=== PATIENT | female | born 1995 | race Caucasian/White ===

== ENCOUNTER 2017-09-23 18:29 | Emergency (ER) | payer OTHER ==
[2017-09-23 18:30] VITALS: BMI 33.9
[2017-09-23 18:46] VITALS: BP 122/75; PULSE 85; RESP 20; TEMP 99.1; O2SAT 99
[2017-09-23] MEDS ORDERED: Amoxicillin-Clav 875-125 mg Tab PO STA (19:28)
--- NOTE | 2017-09-23 19:28 | ED PDOC ---
Arrival/HPI - General Historian: Patient - History of Present Illness Time/Duration: < week (September 21. ) Symptom Onset: Sudden Symptom Course: Worsening Severity Level: 9 (When palpated ) <Adalberto Mcclendon - Last Filed: 09/23/17 22:10> <Krysten Moran - Last Filed: 09/25/17 11:34> - General Chief Complaint: Bite Time Seen by Provider: 09/23/17 18:42 - History of Present Illness Narrative History of Present Illness (Text): 21 year old female with no Past medical history presents complaining of pig bite on her right lower ext. Pig bite happened in [place] on Sep.21. She used bacitracin over both wounds. She denies taking any oral medication. She denies any fevers or chills. She does note increasing erythema around one of the wounds. She rates the pain a 9/10 when palpated but a 0/10 at rest. Patient is unsure about her tetanus vaccination status specifically but stated she is updated on her immunizations. ROS POSITIVES: wound TTP NEGATIVES: fevers, chills, headache, chest pain, shortness of breath, abdominal pain, changes in bowel habits or urinary symptoms, numbness, tingling Past medical history: Denies Past surgical history: tonsillectomy Allergies: NKDA Social Hx: Admits to occasional Hookah and Alcohol use. Denies illicit drug use FamHx: Mother - hypertension/Arthritis Meds: Maritza Fulton ( control) (Adalberto Mcclendon) Past Medical History - Provider Review Nursing Documentation Reviewed: Yes - Infectious Disease Hx of Infectious Diseases: None - Cardiac Hx Cardiac Disorders: No - Pulmonary Hx Respiratory Disorders: No - Neurological Hx Neurological Disorder: No - HEENT Hx HEENT Disorder: No - Renal Hx Renal Disorder: No - Endocrine/Metabolic Hx Endocrine Disorders: No - Hematological/Oncological Hx Blood Disorders: No - Integumentary Hx Dermatological Disorder: No - Musculoskeletal/Rheumatological Hx Musculoskeletal Disorders: Yes Hx Fractures: Yes (bilat ankles) - Gastrointestinal Hx Gastrointestinal Disorders: No - Genitourinary/Gynecological Hx Genitourinary Disorders: No - Psychiatric Hx Psychophysiologic Disorder: No Hx Depression: No Hx Emotional Abuse: No Hx Physical Abuse: No Hx Substance Use: No - Surgical History Hx Tonsillectomy: Yes - Anesthesia Hx Anesthesia: Yes Hx Anesthesia Reactions: No Hx Malignant Hyperthermia: No - Suicidal Assessment Feels Threatened In Home Enviroment: No <Adalberto Mcclendon - Last Filed: 09/23/17 22:10> Family/Social History - Physician Review Nursing Documentation Reviewed: Yes Family/Social History: Hypertension, Other (Arthritis) Smoking Status: Never Smoked Hx Alcohol Use: No Hx Substance Use: No <FaustoDarien titusmisti - Last Filed: 09/23/17 22:10> Allergies/Home Meds <HakanDarienmisti - Last Filed: 09/23/17 22:10> <Krysten Moran - Last Filed: 09/25/17 11:34> Allergies/Adverse Reactions: Allergies No Known Allergies Allergy (Verified 09/23/17 18:46) Home Medications: Home Meds Medication Instructions Recorded Confirmed Norethindrone-E.estradiol-Iron 1 tab PO DAILY 09/23/17 09/23/17 [Microgestin Fe 1-20 Tablet] Review of Systems - Physician Review All systems were reviewed & negative as marked: Yes (As per HPI) - Review of Systems Constitutional: absent: Fevers Respiratory: Normal. absent: SOB Cardiovascular: Normal. absent: Chest Pain Gastrointestinal: Normal. absent: Abdominal Pain <OmerAdalberto kolb - Last Filed: 09/23/17 22:10> Physical Exam Vital Signs Reviewed: Yes Temperature: Afebrile Blood Pressure: Normal Pulse: Regular Respiratory Rate: Normal Appearance: Positive for: Well-Appearing, Non-Toxic, Comfortable Pain Distress: None (No pain at rest) Mental Status: Positive for: Alert and Oriented X 3 - Systems Exam Head: Present: Atraumatic, Normocephalic Extroacular Muscles: Present: EOMI Conjunctiva: Present: Normal Mouth: Present: Moist Mucous Membranes Nose (External): Present: Atraumatic Respiratory/Chest: Present: Clear to Auscultation. No: Wheezes Cardiovascular: Present: Regular Rate and Rhythm, Normal S1, S2. No: Murmurs Abdomen: Present: Normal Bowel Sounds. No: Tenderness Upper Extremity: Present: Normal Inspection Lower Extremity: Present: NORMAL PULSES, Normal ROM, Tenderness, Erythema, Neurovascularly Intact, Capillary Refill < 2 s, Other (2 bite wounds on the Right lower extremity. One wound in right lateral LE just posterior to the knee about .25x.25 cm in diameter. Mildy tender to palpation). No: Normal Inspection , Edema, CALF TENDERNESS, Swelling, Deformity Neurological: Present: GCS=15, Speech Normal Lymphatic: No: Cervical Adenopathy Psychiatric: Present: Alert, Oriented x 3 <Adalberto Mcclendon - Last Filed: 09/23/17 22:10> <Krysten Moran - Last Filed: 09/25/17 11:34> - Physical Exam Narrative Physical Exam (Text): 2 bite wounds on the Right lower extremity. One wound in right lateral LE just inferior to the knee about .25x.25 cm in diameter. Mildy tender to palpation. 2nd wound about .5x.5 cm in diameter on right calf. Wound in healing process with surrounding erythema and firm. Wound is severely tender to palpation. (Adalberto Mcclendon) Vital Signs Temp Pulse Resp BP Pulse Ox 09/23/17 18:40 99.1 F 85 20 122/75 99 Medical Decision Making <Adalberto Mcclendon - Last Filed: 09/23/17 22:10> <Krysten Moran - Last Filed: 09/25/17 11:34> ED Course and Treatment: 21 year old female with no significant Past medical history presents with pig bite --Augmentin --Tdap --Reassess and disposition Reassessment Procedure: Needle Aspiration Performed by the emergency provider Indication: Possible Abscess. region of induration and erythema Location: Right Calf Preparation: The area was prepped and draped in the usual sterile fashion and was cleansed with alcohol swabs Local infiltration of Lidocaine 1% was used for anesthesia. Procedure: The most fluctuant portion of the induration was penetrated with 18 guage needle There was no purulent fluid drained. Post-Procedure: On exam induration improved. The patient tolerated the procedure well, and there were no complications. Cultured: {NO} --Patient is stable for discharge --Patient to go home with 10 days of Augmentin --Patient advised to return to Emergency department and/or call PMD if there is increasing erythema or if she experiences any fevers or chills. (Adalberto Mcclendon) Patient Seen With Resident: In agreement with resident note. Patient was seen and evaluated with resident, came up with plan and treatment together. A 21 year old female with pig bite on her right lower extremity. Additional HPI as noted by resident. On physical exam, patient has two bite wounds on right lower extremity. One wound is .25x .25 cm in right lateral lower extremity, inferior to the knee, mildly tender to palpation. Second wound is .5x.5 cm on right calf, with surrounding erythema and severely tender to palpation. Will give patient Augmentin and Boostrix Vaccine. (Krysten Moran) - Medication Orders Current Medication Orders: Discontinued Medications Amoxicillin/Clavulanate Potassium (Augmentin 875 Mg-125 Mg Tab) 1 tab PO STAT STA PRN Reason: Protocol Stop: 09/23/17 19:29 Last Admin: 09/23/17 19:53 Dose: 1 tab Tetanus/Reduced Diphtheria/Acell Pertussis (Boostrix Vaccine Inj) 0.5 ml IM .ONCE ONE Stop: 09/23/17 19:30 Last Admin: 09/23/17 19:53 Dose: 0.5 ml MAR Immunization Data Document 09/23/17 19:53 [place] (Rec: 09/23/17 19:53 [id number]) Immunization Data Vaccine Information Sheet Given Yes Immunization Registry Document 09/23/17 19:53 [place] (Rec: 09/23/17 19:53 [id number]) Immunization Registry Consent Date 09/23/17 - PA / [employer] / Resident Statement / has reviewed & agrees with the documentation as recorded. <Krysten Moran - Last Filed: 09/25/17 11:34> Disposition/Present on Arrival - Present on Arrival Any Indicators Present on Arrival: No History of DVT/PE: No History of Uncontrolled Diabetes: No Urinary Catheter: No History of Decub. Ulcer: No History Surgical Site Infection Following: None - Disposition Have Diagnosis and Disposition been Completed?: Yes Disposition Time: 22:11 Patient Plan: Discharge <Adalberto Mcclendon - Last Filed: 09/23/17 22:10> <Krysten Moran - Last Filed: 09/25/17 11:34> - Disposition Diagnosis: Bitten by pig Disposition: HOME/ ROUTINE Condition: GOOD Discharge Instructions (ExitCare): Animal Bite (ED) Additional Instructions: Please return call your primary physician and/or return to Emergency department if you begin experiencing signs of infection. Signs of infection include: increasing redness at pig bite site, fevers, or chills. Take antibiotic as directed and until completion even if symptoms have resolved. Prescriptions: Amoxicillin/Clavulanate [Augmentin 875 MG-125 MG] 1 tab PO Q12H #20 tab Referrals: Sondra Epps MD [Primary Care Provider] - Follow up with primary Forms: [employer] (Col[place]ian)
[2017-09-23] MEDS ORDERED: TDAP Vaccine 0.5 mL Syr IM ONE (19:29)
[2017-09-23] MEDS ORDERED: Lidocaine 1% Inj (20ml) ONE (20:09)
== END 2017-09-23 22:30 | disposition home or self-care (01) ==
LOC: ED 18:29
DX: S81.851A Open bite, right lower leg, initial encounter (principal); W55.41XA Bitten by pig, initial encounter; Y92.89 Other specified places as the place of occurrence of the external cause; Z23 Encounter for immunization